=== PATIENT | female | born 1965 | race Caucasian/White ===

== ENCOUNTER 2020-09-24 09:40 | Emergency (ER) | payer MEDICAID ==
[~2020-09-24] VITALS: Ht 154.9 cm; Wt 79.5 kg
[2020-09-24 10:11] VITALS: BP 120/64
[2020-09-24] MEDS ORDERED: paliperidone palmitate 156 mg/ml inj.**IM only IM ONE (12:05)
== END 2020-09-24 12:32 | disposition home or self-care (01) ==
LOC: ER 09:40
DX: F20.9 Schizophrenia, unspecified (principal); Z76.0 Encounter for issue of repeat prescription; Z56.0 Unemployment, unspecified
CPT/HCPCS: 96372; 99283

== ENCOUNTER 2024-02-25 22:43 | Emergency (ER) | payer MEDICAID ==
[~2024-02-25] VITALS: Ht 154.9 cm; Wt 57.4 kg
[2024-02-25 22:44] VITALS: TEMP 97.7
[2024-02-25] MEDS: acetaminophen 325mg tablet PO ONE (23:32)
[2024-02-26 00:45] VITALS: BP 156/84; PULSE 94; RESP 15; O2SAT 97
== END 2024-02-26 00:48 | disposition home or self-care (01) ==
LOC: ER 22:43
DX: J22 Unspecified acute lower respiratory infection (principal); Z20.822 Contact with and (suspected) exposure to COVID-19; R53.1 Weakness; F20.9 Schizophrenia, unspecified; Z59.02 Unsheltered homelessness
CPT/HCPCS: 36415; 71045; 87502; 87503; 87811; 99284

== ENCOUNTER 2024-02-26 20:19 | Emergency (ER) | payer MEDICAID ==
[~2024-02-26] VITALS: Ht 160 cm; Wt 84.1 kg
[2024-02-26] MEDS: acetaminophen 325mg tablet PO STA (20:49)
[2024-02-26 22:07] VITALS: BP 140/78; PULSE 87; RESP 16; TEMP 98.1; O2SAT 98
== END 2024-02-26 22:12 | disposition home or self-care (01) ==
LOC: ER 20:20
DX: M79.672 Pain in left foot (principal); R53.1 Weakness; F20.9 Schizophrenia, unspecified; Z59.02 Unsheltered homelessness
CPT/HCPCS: 73610; 73630; 99284

== ENCOUNTER 2024-03-08 07:49 | Emergency (ER) | payer MEDICAID ==
[~2024-03-08] VITALS: Ht 154.9 cm; Wt 56.8 kg
[2024-03-08 07:57] VITALS: TEMP 98.5
[2024-03-08 08:37] VITALS: BP 120/65; PULSE 71; RESP 16; O2SAT 98
[2024-03-08] MEDS: naproxen 500mg tablet PO ONE (08:47)
== END 2024-03-08 09:06 | disposition home or self-care (01) ==
LOC: ER 07:49
DX: G62.89 Other specified polyneuropathies (principal); F20.9 Schizophrenia, unspecified; M79.671 Pain in right foot; M79.672 Pain in left foot; Z59.02 Unsheltered homelessness
CPT/HCPCS: 82948; 99283

== ENCOUNTER 2024-03-24 09:46 | Emergency (ER) | payer MEDICAID | END 2024-03-24 10:05 | disposition left against medical advice (07) | LOC: ER 09:47 | DX: R06.02 Shortness of breath (principal); F20.9 Schizophrenia, unspecified | CPT/HCPCS: 99283 ==

== ENCOUNTER 2024-05-25 08:27 | Emergency (ER) | payer MEDICAID ==
[~2024-05-25] VITALS: Ht 160 cm; Wt 50.0 kg
[2024-05-25 08:41] VITALS: BP 138/76; PULSE 80; RESP 16; O2SAT 96
[2024-05-25] MEDS ORDERED: ibuprofen tablet 400 MG TABLET PO ONE (09:20)
[2024-05-25 10:58] VITALS: TEMP 98.2
== END 2024-05-25 11:00 | disposition home or self-care (01) ==
LOC: ER 08:28
DX: M25.559 Pain in unspecified hip (principal); F20.9 Schizophrenia, unspecified; Z59.02 Unsheltered homelessness
CPT/HCPCS: 99283

== ENCOUNTER 2024-12-13 16:25 | Emergency (ER) | payer MEDICAID ==
--- NOTE | 2024-12-13 16:47 | Physician Documentation ---
History of Present Illness ~ Stated Complaint: HIP PAIN Time Seen by MD: 16:40 HPI 69-year-old female presents via EMS for a complaint of a recent fall. EMS states that she was yelling and screaming at staff the [employer] today. Reporting pain. EMS presented at the site where the patient refused services. EMS indicated they were able to convince the patient to come to [facility] ED for evaluation. The patient is stating she is not want to be evaluated. She is A&O x4. Her primary concern is that she is unable to effectively ambulate. Day of Fall: Dec 13, 2024 Tetanus within 5 Years?: Yes Medication Reconciliation Allergies: Coded Allergies: No Known Allergies (Unverified , 09/24/20) Past Medical History Past Medical History: Schizophrenia Past Surgical History: noncontributory Alcohol Use: None Drug Use: none Lives In: Homeless Review of Systems All Other Systems at this time: Reviewed and Negative ROS As stated above in the HPI, otherwise all systems are reviewed and negative. Physical Exam Physical Exam General: Alert, no apparent distress. Respiratory: Lungs clear, no respiratory distress. Cardiovascular: Regular rate and rhythm, no murmurs. Neurologic: Oriented x4. Psychiatric: Normal mood and affect. Skin: Normal color, warm and dry. No edema, no ecchymosis. Medical Decision Making Findings Patient eloped from ER haas 3 Departure Disposition: 07 LEFT AWOL/ELOPED Impression: Primary Impression: Unsheltered homelessness Additional Impression: Weakness Condition: Fair Referrals: NO PRIMARY CARE PROVIDER (PCP) Signature Scribe Signature: t Attestation: Scribed for Emergency,Department by Albert Borges NP . 12/13/24 16:43 ALBERT GRAY NP Dec 13, 2024 16:47
== END 2024-12-13 16:42 | disposition left against medical advice (07) ==
LOC: ER 16:25
DX: R53.1 Weakness (principal); Z59.02 Unsheltered homelessness; F20.9 Schizophrenia, unspecified; W19.XXXA Unspecified fall, initial encounter; Y93.89 Activity, other specified; Y92.89 Other specified places as the place of occurrence of the external cause; Y99.8 Other external cause status
CPT/HCPCS: 99283